=== PATIENT | female | born 1960 | race Caucasian/White ===

== ENCOUNTER 2021-06-27 04:20 | Day surgery (SDC) | payer BC ==
[2021-06-22 12:07] VITALS: BMI 23.2
[2021-06-27] MEDS ORDERED: PROPOFOL 20 ML ONE (08:52)
[2021-06-27] MEDS ORDERED: LIDOCAINE HCL/PF 2% SDV 5ML VIAL ONE (08:58)
[2021-06-27] MEDS ORDERED: ACETAMINOPHEN 500 MG TABLET (FP) PO PRN (09:36)
[2021-06-27] MEDS ORDERED: ONDANSETRON 4 MG/2 ML VIAL IVPUSH PRN ×2 (09:36→09:38)
[2021-06-27] MEDS ORDERED: oxyCODONE HCL 5 MG TABLET PO PRN ×2 (09:36→09:38)
[2021-06-27] MEDS ORDERED: IBUPROFEN 800 MG/8 ML IJ IVPB PRN (09:38)
[2021-06-27] MEDS ORDERED: IBUPROFEN 600 MG TABLET (FP) PO PRN (09:38)
[2021-06-27] MEDS ORDERED: ELECTROLYTE-148 SOLN 1,000 ML IV SCH (09:45)
[2021-06-27 13:29] VITALS: BP 158/74; PULSE 74; TEMP 98
== END 2021-06-27 12:40 | disposition home or self-care (01) ==
LOC: JASU-SURG 04:20
PROVIDERS: ATTEND Obstetrics & Gynecology
PROC: 0UDB8ZX Extraction of Endometrium, Via Natural or Artificial Opening Endoscopic, Diagnostic (ICD-10-PCS; 2021-06-27)
PROC: 0UB98ZZ Excision of Uterus, Via Natural or Artificial Opening Endoscopic (ICD-10-PCS; principal; 2021-06-27 09:00)
DX: D25.0 Submucous leiomyoma of uterus (principal)